=== PATIENT | male | born 1980 | race Caucasian/White ===

== ENCOUNTER → 2019-06-03 08:21 | Outpatient (CLI) | payer BC, SELFPAY ==
--- NOTE | 2019-06-03 08:26 | MR_ITS ---
PROCEDURE: MR HEAD/BRAIN WO/W CON CLINICAL INDICATION: PARESTHESIA IN LT HAND, BLURRED VISION, TINNITUS Paresthesias left hand, blurred vision, tinnitus, loss of balance, headache, memory loss COMPARISON: No exams were available for comparison TECHNIQUE: Routine multiplanar multi echo sequences are performed without and with gadolinium enhancement. FINDINGS: No midline shift, mass effect, intracranial hemorrhage, hydrocephalus, acute infarction or enhancing lesion. The cerebellopontine angle, cerebellum, and brainstem are unremarkable. No restricted diffusion is evident. There is normal figueroa-white matter differentiation a single small T2 white matter hyperintensity is present in the subcortical region of the right parietal lobe which is of questionable clinical significance and may be artifactual as it is not identified on the coronal images and only on the axial image. The pituitary, optic chiasm, corpus callosum, and craniocervical junction have an unremarkable appearance. No mastoid effusion or sinus air-fluid level. IMPRESSION: No acute finding. Small T2 white matter hyperintensity right parietal lobe of questionable clinical significance and may be artifactual otherwise negative MRI of the brain without and with contrast Dictated by: Allan Valencia MD 06/04/2019 10:12 Electronically signed by Allan Valencia MD in [place] 06/04/2019 10:12
--- NOTE | 2019-06-03 08:32 | XR_ITS ---
PROCEDURE: XR ORBIT BILATERAL MIN 4V CLINICAL INDICATION: RULE OUT METAL FOREIGN BODY FOR MRI COMPARISON: No exams were available for comparison FINDINGS: No radiopaque foreign bodies evident within the orbits. IMPRESSION: Negative for metallic foreign body Dictated by: Allan Valencia MD 06/03/2019 09:18 Electronically signed by Allan Valencia MD in [place] 06/03/2019 09:19
--- NOTE | 2019-06-03 09:49 | HMH.ITSHM ---
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 []ADVIL SUMATRIPTAN
== END ==
PROVIDERS: PCP Nurse Practitioner; Visit Provider Family Medicine
DX: H05.53 Retained (old) foreign body following penetrating wound of bilateral orbits (principal); G43.909 Migraine, unspecified, not intractable, without status migrainosus; R20.2 Paresthesia of skin; H53.8 Other visual disturbances; H93.19 Tinnitus, unspecified ear; R26.89 Other abnormalities of gait and mobility
CPT/HCPCS: 70200; 70553; A9576

== ENCOUNTER → 2021-06-04 10:17 | Outpatient (CLI) | payer BC, SELFPAY ==
[2021-06-04 11:49] LABS: Coronavirus 19 IgG Antibody Negative (Negative); Coronavirus 19 IgM Antibody Negative (Negative)
== END ==
PROVIDERS: PCP Family Medicine; Visit Provider Nurse Practitioner
DX: Z20.822 Contact with and (suspected) exposure to COVID-19 (principal)
CPT/HCPCS: 36415; 86328; C9803; U0003; U0005